=== PATIENT | male | born 1965 | race Caucasian/White ===

== ENCOUNTER 2016-07-03 22:57 | Emergency (ER) | payer OTHER ==
[~2016-07-03] VITALS: Ht 177.8 cm; Wt 120.2 kg
[~2016-07-03 22:57] MED LIST: AMBIEN PO; ASPI81TA85 PO; ATOR40TA PO; CLAR10CA3 PO; DEPA500T2 PO; DIVA500T9 PO; GEOD40CA PO; GLYB5TAB5 PO; LISI2.5T PO; LISI5TAB PO; LUNE2TAB PO; METF500T PO; METF850T PO; MINI1CAP PO; OMEP40CA2 PO; PROP20TA PO; REFR1DRO OU; STRA40CA PO; ZOLO50TA PO; [UNRECOGNIZED DRUG - OTHER] PO
[2016-07-03] MEDS ORDERED: VITATAB11 PO (23:26)
[2016-07-03] MEDS ORDERED: CYCL10TA PO (23:26)
[2016-07-03] MEDS ORDERED: REME15TA2 PO (23:26)
[2016-07-04 00:02] LABS: BASO % 0.3 % (0.0-1.0); EOS # 0.2 K/mm3 (0.0-0.50); EOS % 2.2 % (0.0-3.0); LARGE UNSTAINED CELL # 0.1 K/mm3 (0.0-0.4); LARGE UNSTAINED CELL % 1.3 % (0.0-4.0); LYMPH # 2.3 K/mm3 (1.5-4.5); LYMPH % 31.1 % (24.0-44.0); MEAN CORPUSCULAR HEMOGLOBIN 29.9 pg (27.0-33.0); MEAN CORPUSCULAR HGB CONC 34.2 g/dl (32.0-36.5); MEAN CORPUSCULAR VOLUME 87.5 fl (80.0-96.0); MONO # 0.4 K/mm3 (0.0-0.8); MONO % 5.2 % (0.0-5.0); NEUTROPHILS # 4.2 K/mm3 (1.8-7.7); NEUTROPHILS % 59.9 % (36.0-66.0); PLATELET COUNT, AUTOMATED 249 k/mm3 (150-450); RED CELL DISTRIBUTION WIDTH 12.3 % (11.5-14.5)
[2016-07-04] MEDS ORDERED: LORazepam 2 MG/ML VIAL (J2060) IV STA (00:13)
[2016-07-04 00:15] LABS: ALBUMIN 3.4 GM/DL (3.2-5.2); ALBUMIN/GLOBULIN RATIO 1.03 (1.00-1.93); ALKALINE PHOSPHATASE 71 U/L (45-117); ALT/SGPT 44 U/L (12-78); ANION GAP 10 MEQ/L (8-16); AST/SGOT 18 U/L (15-37); BILIRUBIN,DIRECT 0.1 MG/DL (0.0-0.2); BILIRUBIN,TOTAL 0.3 MG/DL (0.2-1.0); BLOOD UREA NITROGEN 10 MG/DL (7-18); CALCIUM LEVEL 9.4 MG/DL (8.5-10.1); CARBON DIOXIDE LEVEL 27 MEQ/L (21-32); CHLORIDE LEVEL 104 MEQ/L (98-107); FREE T4 0.96 NG/DL (0.76-1.46); GLOMERULAR FILTRATION RATE > 60.0 (>56); GLUCOSE, FASTING 146 MG/DL (70-105); POTASSIUM SERUM 4.1 MEQ/L (3.5-5.1); SODIUM LEVEL 141 MEQ/L (136-145); TOTAL PROTEIN 6.7 GM/DL (6.4-8.2)
[2016-07-04 00:43] LABS: INR 0.91
--- NOTE | 2016-07-04 01:32 | REP ---
Clinical: Cough . Comparison: 03/19/2015 . Technique: PA and lateral. Findings: The mediastinum and cardiac silhouette are normal. The lung sal are clear and without acute consolidation, effusion, or pneumothorax. The skeletal structures are intact and normal. Impression: 1. No acute cardiopulmonary process. Signed by Kodi West MD 07/04/2016 01:24 A
[2016-07-04] MEDS ORDERED: MORPHINE 4 MG/ML 1ML SYRINGE IV PRN (01:45)
[2016-07-04] MEDS ORDERED: ONDANSETRON 4MG/2ML VIAL (J2405) IV ONE (01:45)
[2016-07-04 05:59] VITALS: BP_DIAS 81
[2016-07-04 07:05] VITALS: BP_SYST 131
--- NOTE | 2016-07-04 08:45 | ECGEPIP ---
Stationary ECG Study [facility] - ED Test Date: 2016-07-03 Pat Name: DANGELO MOSQUEDA Department: Room: - Gender: M Box Repairer: raeann : 1965 Requested By: SANIYA Pereria Order Number: [id number] Reading MD: Val Rich Measurements Intervals [place] Rate: 78 P: 47 NE: 127 QRS: -14 QRSD: 106 T: 114 QT: 352 QTc: 402 Interpretive Statements SINUS RHYTHM INFERIOR MYOCARDIAL INFARCTION, PROBABLY OLD NSTTW ABNORMALITY INCREASED RATE 06/07/13 Electronically Signed On 07-04-2016 8:45:24 EDT by Val Rich
--- NOTE | 2016-07-05 20:06 | ECGEPIP ---
Stationary ECG Study [facility] - ED Test Date: 2016-07-04 Pat Name: DANGELO MOSQUEDA Department: Room: - Gender: M Environmental Services Coordinator: carlos alberto : 1965 Requested By: SANIYA Pereira Order Number: [id number] Reading MD: Val Rich Measurements Intervals [place] Rate: 78 P: 46 ND: 141 QRS: -19 QRSD: 98 T: 97 QT: 360 QTc: 412 Interpretive Statements SINUS RHYTHM INFERIOR MYOCARDIAL INFARCTION, PROBABLY OLD NSTTW ABNORMALITY SIMILAR 07/03/16 Electronically Signed On 07-05-2016 20:06:35 EDT by Val Rich
== END 2016-07-04 07:06 | disposition home or self-care (01) ==
LOC: EDBD 22:57 → M ED 22:59
DX: R07.89 Other chest pain (principal); R94.31 Abnormal electrocardiogram [ECG] [EKG]; R11.0 Nausea; K21.9 Gastro-esophageal reflux disease without esophagitis; R56.9 Unspecified convulsions; Z88.8 Allergy status to other drugs, medicaments and biological substances; Z79.899 Other long term (current) drug therapy; Z79.82 Long term (current) use of aspirin; Z79.84 Long term (current) use of oral hypoglycemic drugs
CPT/HCPCS: 71020; 80048; 80076; 82550; 82553; 83690; 83880; 84439; 84443; 84484; 85025; 85379; 85610; 85730; 93005; 93041; 96374; 96375; 99285; J2060; J2405

== ENCOUNTER 2017-07-27 06:11 | Observation (INO) | payer OTHER ==
[2017-07-27 06:27] LABS: HEMATOCRIT 40.3 % (42.0-52.0); HEMOGLOBIN 13.8 g/dl (13.5-17.5); MEAN CORPUSCULAR HEMOGLOBIN 30.9 pg (27.0-33.0); MEAN CORPUSCULAR HGB CONC 34.2 g/dl (32.0-36.5); MEAN CORPUSCULAR VOLUME 90.2 fl (80.0-96.0); PLATELET COUNT, AUTOMATED 221 10^3/uL (150-450); RED BLOOD COUNT 4.47 10^6/uL (4.30-6.10); RED CELL DISTRIBUTION WIDTH 12.1 % (11.5-14.5); WHITE BLOOD COUNT 6.9 10^3/uL (4.0-10.0)
[2017-07-27 06:28] LABS: BEDSIDE GLUCOSE 204 MG/DL (70-105)
[2017-07-27 06:58] LABS: ACETAMINOPHEN LEVEL < 2.0 UG/ML (10.0-30.0); ALBUMIN 3.4 GM/DL (3.2-5.2); ALBUMIN/GLOBULIN RATIO 0.89 (1.00-1.93); ALKALINE PHOSPHATASE 80 U/L (45-117); ALT/SGPT 46 U/L (12-78); ANION GAP 5 MEQ/L (8-16); AST/SGOT 20 U/L (7-37); BILIRUBIN,DIRECT < 0.1 MG/DL (0.0-0.2); BILIRUBIN,TOTAL 0.2 MG/DL (0.2-1.0); BLOOD UREA NITROGEN 13 MG/DL (7-18); CALCIUM LEVEL 9.2 MG/DL (8.5-10.1); CARBON DIOXIDE LEVEL 30 MEQ/L (21-32); CHLORIDE LEVEL 107 MEQ/L (98-107); CPK CREATINE PHOSPHOKINASE 139 U/L (39-308); ETHYL ALCOHOL (ETHANOL) < 0.003 % (0.000-0.010); GLOMERULAR FILTRATION RATE > 60.0 (>56); GLUCOSE, FASTING 211 MG/DL (70-100); POTASSIUM SERUM 4.2 MEQ/L (3.5-5.1); SALICYLATE LEVEL < 1.7 MG/DL (5.0-30.0); SODIUM LEVEL 142 MEQ/L (136-145); TOTAL PROTEIN 7.2 GM/DL (6.4-8.2)
[2017-07-27 07:15] LABS: VALPROIC ACID (DEPAKOTE) 43.8 UG/ML (50.0-100.0)
[2017-07-27 07:39] LABS: LACTIC ACID SEPSIS PROTOCOL 2.7 MMOL/L (0.4-2.0)
[2017-07-27 07:44] LABS: AMMONIA 32 uMOL/L (<32)
[2017-07-27] MEDS: NS 1,000 ML IV ×3 (07:45→19:39)
[2017-07-27 09:01] LABS: ABG HCO3 25.2 MEQ/L (22.0-26.0); ABG O2 SATURATION 95.2 % (95.0-99.0); ABG PARTIAL PRESSURE O2 77.9 mmHg (75.0-100.0); ABG STANDARD HCO3 24.4 MEQ/L (22.0-26.0); ABG TOTAL CO2 26.5 MEQ/L (22.0-29.0); ABG pH (ARTERIAL) 7.385 UNITS (7.350-7.450)
[2017-07-27 09:15] LABS: BEDSIDE GLUCOSE 192 MG/DL (70-105)
[2017-07-27 09:30] LABS: VALPROIC ACID (DEPAKOTE) 40.4 UG/ML (50.0-100.0)
[2017-07-27] MEDS ORDERED: DEXTROSE 50% 50 ML SYRINGE IV (09:45)
[2017-07-27] MEDS ORDERED: GLUCAGON FOR INJ 1 MG VIAL (J1610) SC (09:45)
[2017-07-27] MEDS ORDERED: GLUCOSE 4 GM CHEW TABLET PO (09:45)
[2017-07-27 10:10] LABS: LACTIC ACID SEPSIS PROTOCOL 2.7 MMOL/L (0.4-2.0)
[2017-07-27 11:20] LABS: BEDSIDE GLUCOSE 183 MG/DL (70-105)
[2017-07-27 11:35] LABS: CK-MB VALUE MASS 1.7 NG/ML (<3.6); CPK CREATINE PHOSPHOKINASE 103 U/L (39-308); MB/CK RELATIVE INDEX 1.65 (< OR =4); TROPONIN I 0.02 NG/ML (< 0.10)
[2017-07-27 11:36] LABS: FREE T4 0.98 NG/DL (0.76-1.46)
[2017-07-27 12:45] LABS: LACTIC ACID SEPSIS PROTOCOL 2.8 MMOL/L (0.4-2.0)
[2017-07-27 13:16] LABS: BEDSIDE GLUCOSE 163 MG/DL (70-105)
[2017-07-27] MEDS: HEPARIN SOD (PORCINE) 5000 UNITS/ML VIAL SC ×2 (14:54→22:32)
[2017-07-27 15:19] LABS: BEDSIDE GLUCOSE 146 MG/DL (70-105)
[2017-07-27 17:54] LABS: BEDSIDE GLUCOSE 143 MG/DL (70-105)
[2017-07-27] MEDS: HumaLOG INSULIN (NovoLOG) PER UNIT SC ×2 (18:14→21:00)
[2017-07-27 18:21] LABS: ANION GAP 7 MEQ/L (8-16); BLOOD UREA NITROGEN 10 MG/DL (7-18); CALCIUM LEVEL 8.8 MG/DL (8.5-10.1); CARBON DIOXIDE LEVEL 28 MEQ/L (21-32); CHLORIDE LEVEL 108 MEQ/L (98-107); GLOMERULAR FILTRATION RATE > 60.0 (>56); GLUCOSE, FASTING 146 MG/DL (70-100); POTASSIUM SERUM 4.2 MEQ/L (3.5-5.1); SODIUM LEVEL 143 MEQ/L (136-145)
[2017-07-27 20:29] LABS: CK-MB VALUE MASS 1.8 NG/ML (<3.6); CPK CREATINE PHOSPHOKINASE 86 U/L (39-308); MB/CK RELATIVE INDEX 2.09 (< OR =4); TROPONIN I 0.02 NG/ML (< 0.10)
[2017-07-27] MEDS: DIVALPROEX 500MG *ER* TAB PO (22:29)
[2017-07-27] MEDS: PROPRANOLOL 10 MG TAB PO (22:31)
[2017-07-27] MEDS: ATORVASTATIN 20 MG TAB PO (22:31)
[2017-07-27] MEDS: PRAZOSIN 1 MG CAP PO (22:31)
[2017-07-27 22:45] LABS: BEDSIDE GLUCOSE 187 MG/DL (70-105)
[2017-07-28 05:21] LABS: HEMOGLOBIN 12.2 g/dl (13.5-17.5); MEAN CORPUSCULAR HEMOGLOBIN 30.2 pg (27.0-33.0); MEAN CORPUSCULAR HGB CONC 33.9 g/dl (32.0-36.5); MEAN CORPUSCULAR VOLUME 89.1 fl (80.0-96.0); PLATELET COUNT, AUTOMATED 200 10^3/uL (150-450); RED BLOOD COUNT 4.04 10^6/uL (4.30-6.10); WHITE BLOOD COUNT 5.4 10^3/uL (4.0-10.0)
[2017-07-28 05:35] LABS: ANION GAP 7 MEQ/L (8-16); BLOOD UREA NITROGEN 9 MG/DL (7-18); CALCIUM LEVEL 8.6 MG/DL (8.5-10.1); CARBON DIOXIDE LEVEL 25 MEQ/L (21-32); CHLORIDE LEVEL 110 MEQ/L (98-107); CREATININE FOR GFR 0.75 MG/DL (0.70-1.30); GLOMERULAR FILTRATION RATE > 60.0 (>56); GLUCOSE, FASTING 202 MG/DL (70-100); MAGNESIUM LEVEL 1.4 MG/DL (1.8-2.4); SODIUM LEVEL 142 MEQ/L (136-145)
[2017-07-28] MEDS: NS 1,000 ML IV (05:46)
[2017-07-28] MEDS: HEPARIN SOD (PORCINE) 5000 UNITS/ML VIAL SC ×2 (05:46→14:00)
[2017-07-28] MEDS: MAG SULF 1GM/100ML (MAG RUN) 1 GM in APPROPRIATE DILUENT 1 EA IV (06:40)
[2017-07-28] MEDS: CYCLOBENZAPRINE 10 MG TAB PO (07:01)
[2017-07-28] MEDS: VITAMIN B COMPLEX/VIT C CAP PO (08:45)
[2017-07-28] MEDS: HumaLOG INSULIN (NovoLOG) PER UNIT SC ×2 (08:45→11:21)
[2017-07-28] MEDS: LISINOPRIL 5 MG TAB PO (08:46)
[2017-07-28] MEDS: DIVALPROEX 500MG *ER* TAB PO (08:46)
[2017-07-28] MEDS: OMEPRAZOLE 20 MG CAP PO (08:47)
[2017-07-28] MEDS: MAGNESIUM OXIDE 400 MG TAB (MAG-OX) PO (08:47)
[2017-07-28] MEDS: PROPRANOLOL 10 MG TAB PO (08:47)
[2017-07-28] MEDS: MULTIVITAMINS/MINERALS THERAP 1 TAB PO (08:47)
[2017-07-28] MEDS: ASPIRIN 81 MG ENTERIC TAB PO (08:47)
[2017-07-28] MEDS: ACETAMINOPHEN TAB 650MG DOSE (2X325MG) PO (11:16)
[2017-07-28 11:52] LABS: BEDSIDE GLUCOSE 196 MG/DL (70-105)
== END 2017-07-28 15:59 | disposition home health service (06) ==
LOC: M PCU 07-28 03:36 → M ED 06:11 → M ED INP 09:32 → M ICU 10:35
PROVIDERS: Internal Medicine
DX: R53.83 Other fatigue (principal); R07.89 Other chest pain; F31.9 Bipolar disorder, unspecified; F43.10 Post-traumatic stress disorder, unspecified; F90.9 Attention-deficit hyperactivity disorder, unspecified type; E78.00 Pure hypercholesterolemia, unspecified; I10 Essential (primary) hypertension; K21.9 Gastro-esophageal reflux disease without esophagitis; Z79.82 Long term (current) use of aspirin; Z79.899 Other long term (current) drug therapy; E11.9 Type 2 diabetes mellitus without complications; R56.9 Unspecified convulsions
CPT/HCPCS: J3475

== ENCOUNTER 2018-07-25 10:00 | Emergency (ER) | payer OTHER ==
[~2018-07-25] VITALS: Ht 177.8 cm; Wt 118.2 kg
[~2018-07-25 10:00] MED LIST changes: +AMBI10TA PO; +ATOM40CA PO; +CYCL10TA PO; +MAG400TA PO; +MIRT15TA3 PO; +PRAZ2CAP PO; +REME15TA2 PO; +VITATAB11 PO; +VITMTA PO
[2018-07-25] MEDS ORDERED: ONDANSETRON 4 MG ORAL DISINTEGRATING TAB (Q0162 PER 1MG) PO ONE (10:45)
[2018-07-25] MEDS ORDERED: ACETAMINOPHEN TAB 650MG DOSE (2X325MG) PO ONE (10:45)
[2018-07-25 10:46] LABS: BASO % 0.5 % (0.0-1.0); EOS % 0.5 % (0.0-3.0); HEMATOCRIT 41.4 % (42.0-52.0); LYMPH # 1.1 10^3/uL (1.5-4.5); LYMPH % 18.5 % (24.0-44.0); MEAN CORPUSCULAR HGB CONC 33.8 g/dl (32.0-36.5); MEAN CORPUSCULAR VOLUME 91.6 fl (80.0-96.0); MONO # 0.6 10^3/uL (0.0-0.8); MONO % 10.1 % (0.0-5.0); NEUTROPHILS # 4.1 10^3/uL (1.8-7.7); NEUTROPHILS % 70.2 % (36.0-66.0); PLATELET COUNT, AUTOMATED 190 10^3/uL (150-450); RED BLOOD COUNT 4.52 10^6/uL (4.30-6.10); WHITE BLOOD COUNT 5.8 10^3/uL (4.0-10.0)
[2018-07-25 10:59] LABS: BLOOD UREA NITROGEN 12 MG/DL (7-18); CALCIUM LEVEL 9.6 MG/DL (8.5-10.1); CARBON DIOXIDE LEVEL 24 MEQ/L (21-32); CHLORIDE LEVEL 105 MEQ/L (98-107); CREATININE FOR GFR 0.87 MG/DL (0.70-1.30); GLOMERULAR FILTRATION RATE > 60.0 (>56); GLUCOSE, FASTING 185 MG/DL (70-100); POTASSIUM SERUM 4.2 MEQ/L (3.5-5.1); SODIUM LEVEL 138 MEQ/L (136-145); VALPROIC ACID (DEPAKOTE) 76.1 UG/ML (50.0-100.0)
[2018-07-25 11:29] LABS: INFLUENZA A AMPLIFICATION NEGATIVE (NEGATIVE); INFLUENZA B AMPLIFICATION NEGATIVE (NEGATIVE)
[2018-07-25 13:15] VITALS: BP 140/81
== END 2018-07-25 13:21 | disposition home or self-care (01) ==
LOC: M ED 10:00
DX: B34.9 Viral infection, unspecified (principal); M79.10 Myalgia, unspecified site; R11.0 Nausea; R51 Headache; T50.Z95A Adverse effect of other vaccines and biological substances, initial encounter; E11.9 Type 2 diabetes mellitus without complications; I10 Essential (primary) hypertension; E78.5 Hyperlipidemia, unspecified; R56.9 Unspecified convulsions; F31.9 Bipolar disorder, unspecified; F43.10 Post-traumatic stress disorder, unspecified; Z88.8 Allergy status to other drugs, medicaments and biological substances; Z79.899 Other long term (current) drug therapy; Z79.82 Long term (current) use of aspirin; Z79.84 Long term (current) use of oral hypoglycemic drugs
CPT/HCPCS: 36415; 80048; 80164; 85025; 87502; 99284; Q0162

== ENCOUNTER 2018-11-25 15:03 | Inpatient (IN) | payer OTHER ==
[~2018-11-25] VITALS: Ht 177.8 cm; Wt 116.5 kg
[2018-11-25 17:23] LABS: MEAN CORPUSCULAR HEMOGLOBIN 30.6 pg (27.0-33.0); MEAN CORPUSCULAR HGB CONC 34.1 g/dl (32.0-36.5); MEAN CORPUSCULAR VOLUME 89.5 fl (80.0-96.0); PLATELET COUNT, AUTOMATED 225 10^3/uL (150-450); RED BLOOD COUNT 4.58 10^6/uL (4.30-6.10); WHITE BLOOD COUNT 5.4 10^3/uL (4.0-10.0)
[2018-11-25] MEDS ORDERED: ALOG6.25 PO (17:44)
[2018-11-25] MEDS ORDERED: ATOM80CA PO (17:44)
[2018-11-25 17:54] LABS: AMPHETAMINES LEVEL URINE NEGATIVE (NEGATIVE); BARBITURATES URINE NEGATIVE (NEGATIVE); BENZODIAZEPINES URINE NEGATIVE (NEGATIVE); CANNABINOIDS URINE NEGATIVE (NEGATIVE); COCAINE METABOLITE URINE NEGATIVE (NEGATIVE); METHADONE URINE NEGATIVE (NEGATIVE); OPIATES URINE NEGATIVE (NEGATIVE); PHENCYCLIDINE URINE NEGATIVE (NEGATIVE)
[2018-11-25 18:05] LABS: ACETAMINOPHEN LEVEL < 2.0 UG/ML (10.0-30.0); ALBUMIN 3.7 GM/DL (3.2-5.2); ALT/SGPT 30 U/L (12-78); BILIRUBIN,DIRECT < 0.1 MG/DL (0.0-0.2); BILIRUBIN,TOTAL 0.3 MG/DL (0.2-1.0); BLOOD UREA NITROGEN 15 MG/DL (7-18); CALCIUM LEVEL 9.9 MG/DL (8.5-10.1); CARBON DIOXIDE LEVEL 25 MEQ/L (21-32); CHLORIDE LEVEL 104 MEQ/L (98-107); CREATININE FOR GFR 0.83 MG/DL (0.70-1.30); ETHYL ALCOHOL (ETHANOL) < 0.003 % (0.000-0.010); GLOMERULAR FILTRATION RATE > 60.0 (>56); GLUCOSE, FASTING 228 MG/DL (70-100); POTASSIUM SERUM 4.5 MEQ/L (3.5-5.1); SALICYLATE LEVEL < 1.7 MG/DL (5.0-30.0); SODIUM LEVEL 137 MEQ/L (136-145); TOTAL PROTEIN 6.8 GM/DL (6.4-8.2); VALPROIC ACID (DEPAKOTE) 56.3 UG/ML (50.0-100.0)
[2018-11-25] MEDS ORDERED: METF10004 PO (20:16)
[2018-11-25] MEDS ORDERED: ZOLP10TA2 PO (20:16)
[2018-11-25] MEDS ORDERED: B COTAB3 PO (20:16)
[2018-11-25] MEDS ORDERED: ATOM40CA2 PO (20:16)
[2018-11-25] MEDS ORDERED: OMEP-221 PO (20:16)
[2018-11-25] MEDS ORDERED: LORA-674 PO (20:16)
[2018-11-25] MEDS ORDERED: DIVA500T9 PO (20:16)
[2018-11-25] MEDS ORDERED: GLYB5TA PO (20:16)
[2018-11-25] MEDS ORDERED: PROP10TA56 PO (20:16)
[2018-11-25] MEDS ORDERED: ATOR80TA59 PO (20:16)
[2018-11-25] MEDS ORDERED: LISI40TA PO (20:16)
[2018-11-25] MEDS ORDERED: CYCL10TA PO (20:16)
[2018-11-25] MEDS ORDERED: REME15TA PO (20:16)
[2018-11-25] MEDS ORDERED: D-10TAB3 PO (20:16)
[2018-11-25] MEDS ORDERED: ALOG25TA PO (20:16)
[2018-11-25] MEDS ORDERED: PRAZ2CAP PO (20:16)
[2018-11-25] MEDS ORDERED: ASPI81CH44 PO (20:16)
[2018-11-25] MEDS ORDERED: IBUPROFEN 400 MG TAB PO PRN (20:45)
[2018-11-25] MEDS ORDERED: CYCLOBENZAPRINE 10 MG TAB PO PRN (20:45)
[2018-11-25] MEDS ORDERED: traZODone 50 MG TAB PO PRN (20:45)
[2018-11-25] MEDS ORDERED: MOM 30ML SUSPENSION UDC PO PRN (20:45)
[2018-11-25] MEDS ORDERED: ACETAMINOPHEN TAB 650MG DOSE (2X325MG) PO PRN (20:45)
[2018-11-25] MEDS ORDERED: MIRTAZAPINE 15 MG TAB PO SCH (21:00)
[2018-11-25] MEDS: PRAZOSIN 1 MG CAP PO SCH (21:53)
[2018-11-25] MEDS: metFORMIN (GLUCOPHAGE) 1000 MG TABLET PO SCH (21:53)
[2018-11-25] MEDS: DIVALPROEX 500MG *ER* TAB PO SCH (21:54)
[2018-11-25 22:53] VITALS: BP 158/77
[2018-11-26 06:34] VITALS: BP 118/66
[2018-11-26] MEDS: glyBURIDE 2.5 MG TAB PO SCH ×2 (09:44→17:50)
[2018-11-26] MEDS: DIVALPROEX 500MG *ER* TAB PO SCH ×2 (09:44→20:51)
[2018-11-26] MEDS: VITAMIN D 1,000 INTERNATIONAL UNITS TABLET PO SCH (09:44)
[2018-11-26] MEDS: LORATADINE 10 MG TAB PO SCH (09:44)
[2018-11-26] MEDS: ATOMOXETINE HCL 40 MG CAP (STRATTERA) PO SCH (09:44)
[2018-11-26] MEDS: metFORMIN (GLUCOPHAGE) 1000 MG TABLET PO SCH ×2 (09:44→20:51)
[2018-11-26] MEDS: VITAMIN B COMPLEX/VIT C CAP PO SCH (09:44)
[2018-11-26] MEDS: OMEPRAZOLE 20 MG CAP PO SCH (09:45)
[2018-11-26] MEDS: LISINOPRIL 40 MG TAB PO SCH (09:45)
[2018-11-26] MEDS: PROPRANOLOL 10 MG TAB PO SCH (09:45)
[2018-11-26] MEDS: ATORVASTATIN 20 MG TAB PO SCH (09:45)
[2018-11-26 18:00] VITALS: BP 130/80
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
[2018-11-26] MEDS: PRAZOSIN 1 MG CAP PO SCH (20:51)
[2018-11-26] MEDS ORDERED: MIRTAZAPINE 15 MG TAB PO SCH (21:00)
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
[2018-11-27 06:43] VITALS: BP 147/70
[2018-11-27] MEDS: glyBURIDE 2.5 MG TAB PO SCH (06:50)
[2018-11-27] MEDS: metFORMIN (GLUCOPHAGE) 1000 MG TABLET PO SCH (10:05)
[2018-11-27] MEDS: LORATADINE 10 MG TAB PO SCH (10:05)
[2018-11-27] MEDS: VITAMIN B COMPLEX/VIT C CAP PO SCH (10:05)
[2018-11-27] MEDS: VITAMIN D 1,000 INTERNATIONAL UNITS TABLET PO SCH (10:05)
[2018-11-27] MEDS: LISINOPRIL 40 MG TAB PO SCH (10:06)
[2018-11-27] MEDS: ATORVASTATIN 20 MG TAB PO SCH (10:06)
[2018-11-27] MEDS: DIVALPROEX 500MG *ER* TAB PO SCH (10:06)
[2018-11-27] MEDS: OMEPRAZOLE 20 MG CAP PO SCH (10:06)
[2018-11-27] MEDS: ATOMOXETINE HCL 40 MG CAP (STRATTERA) PO SCH (10:06)
[2018-11-27 10:07] VITALS: BP 121/82
[2018-11-27] MEDS: PROPRANOLOL 10 MG TAB PO SCH (10:07)
--- NOTE | 2018-11-30 12:27 | MHDS ---
DATE OF ADMISSION: 11/25/2018 DATE OF DISCHARGE: 11/27/2018 DIAGNOSES: Major depressive disorder. Post traumatic stress disorder. Attention deficit hyperactivity disorder. Seizure disorder. Diabetes mellitus. IDENTIFYING DATA: He is a 53-year-old male who lives with his who is wheel chair bound, father of two children, supported by social security disability, who was admitted because of suicidal thoughts. For details of history of present illness (HPI), past psychiatric history, medical history, social history, drug and alcohol history, please refer to the initial evaluation. COURSE IN THE HOSPITAL: The patient was initially depressed and sad. He was ambivalent about suicidal thoughts and plan and could not identify the stress. His Remeron was increased to 30 mg once daily. He was continued in his individual, group and milieu therapy. His self esteem improved and he started attending groups and activities. Psychoeducation regarding the benefits and the side effects of the medications were explained to the patient. He slept better. His mood improved. No side effects from the medications. Denied suicidal or homicidal ideas. He was discharged. LABS: CBC within normal limits. CMP within normal limits. Urine toxicology was negative. MEDICATIONS: - mirtazapine 30 mg once daily - Strattera 40 mg once daily - Depakote 1000 mg twice a day for seizure disorder - prazosin 6 mg at night for post traumatic stress disorder - propranolol 10 mg daily for anxiety VITAL SIGNS: Temperature 98.2, respiratory rate 14, blood pressure 147/70. REVIEW OF SYSTEMS: Denied chest pain, palpitations. Denied abdominal pain, dysuria. Denied shortness of breath or cough. Denied dizziness, numbness, tingling. Gait is normal. PLAN: To discharge him home. Followup at [facility]. MENTAL STATUS EXAMINATION: He is casually dressed, cooperative, made good eye contact. Psychomotor activity is normal. Mood is euthymic. Affect is appropriate. Denied auditory or visual hallucinations. Denied suicidal or homicidal ideas. His insight and judgment are good. Memory - immediate, remote and recent are good. He is oriented to time, place and person. Denied any delusions. Denied any paranoia.
== END 2018-11-27 12:50 | disposition home or self-care (01) | DRG 881 ==
LOC: M ED 15:03 → M ED INP 20:32 → M PSY 22:47
PROVIDERS: ADMIT Psychiatry & Neurology Psychiatry; ATTEND Psychiatry & Neurology Psychiatry
DX: F32.9 Major depressive disorder, single episode, unspecified (principal); F43.10 Post-traumatic stress disorder, unspecified; F90.9 Attention-deficit hyperactivity disorder, unspecified type; G40.909 Epilepsy, unspecified, not intractable, without status epilepticus; E11.9 Type 2 diabetes mellitus without complications; I10 Essential (primary) hypertension; Z88.0 Allergy status to penicillin; Z88.8 Allergy status to other drugs, medicaments and biological substances; K21.9 Gastro-esophageal reflux disease without esophagitis; E78.5 Hyperlipidemia, unspecified; Z79.899 Other long term (current) drug therapy

== ENCOUNTER 2019-05-24 09:13 | Observation (INO) | payer OTHER ==
[~2019-05-24] VITALS: Ht 177.8 cm; Wt 109.8 kg
[~2019-05-24 09:13] MED LIST changes: +ALOG25TA PO; +ALOG6.25 PO; +ASPI1CHW3 PO; +ATOM40CA2 PO; +ATOM80CA PO; +ATOR80TA59 PO; +B COTAB3 PO; +D-10TAB3 PO; +GLYB5TA PO; +LISI40TA PO; +LORA-674 PO; +METF10004 PO; +OMEP-221 PO; +PROP10TA56 PO; +REME15TA PO; +ZOLP10TA2 PO
[2019-05-24 09:41] LABS: BASO % 0.5 % (0.0-1.0); EOS # 0.1 10^3/uL (0.0-0.5); EOS % 2.3 % (0.0-3.0); HEMATOCRIT 43.9 % (42.0-52.0); HEMOGLOBIN 14.5 g/dl (13.5-17.5); LYMPH # 2.4 10^3/uL (1.5-5.0); LYMPH % 39.4 % (24.0-44.0); MEAN CORPUSCULAR HEMOGLOBIN 30.7 pg (27.0-33.0); MEAN CORPUSCULAR VOLUME 92.8 fl (80.0-96.0); MONO # 0.5 10^3/uL (0.0-0.8); MONO % 8.5 % (0.0-5.0); PLATELET COUNT, AUTOMATED 226 10^3/uL (150-450); RED BLOOD COUNT 4.73 10^6/uL (4.30-6.10); WHITE BLOOD COUNT 6.2 10^3/uL (4.0-10.0)
[2019-05-24 10:17] LABS: BLOOD UREA NITROGEN 13 MG/DL (7-18); CALCIUM LEVEL 9.3 MG/DL (8.5-10.1); CARBON DIOXIDE LEVEL 22 MEQ/L (21-32); CHLORIDE LEVEL 109 MEQ/L (98-107); CK-MB VALUE MASS < 1.0 NG/ML (<3.6); CPK CREATINE PHOSPHOKINASE 67 U/L (39-308); CREATININE FOR GFR 0.96 MG/DL (0.70-1.30); GLOMERULAR FILTRATION RATE > 60.0 (>56); GLUCOSE, FASTING 186 MG/DL (70-100); MB/CK RELATIVE INDEX 1.49 (< OR =4); POTASSIUM SERUM 4.3 MEQ/L (3.5-5.1); SODIUM LEVEL 140 MEQ/L (136-145); TROPONIN I < 0.02 NG/ML (< 0.10)
[2019-05-24] MEDS ORDERED: JARD1TAB3 PO (10:39)
[2019-05-24 11:46] LABS: VALPROIC ACID (DEPAKOTE) 35.1 UG/ML (50.0-100.0)
[2019-05-24 11:58] LABS: HEMOGLOBIN A1c 7.1 %
--- NOTE | 2019-05-24 13:34 | REP ---
Portable chest x-ray: Single view. History: Syncope. Comparison chest x-ray: July 27, 2017. Findings: Monitoring electrodes are seen. The lungs are symmetrically aerated and clear. Pleural angles are sharp. Heart is not enlarged. Pulmonary vasculature is not increased. No significant bony abnormality. Impression: Negative portable chest x-ray. Electronically Signed by Scar Ruiz MD 05/24/2019 01:25 P
[2019-05-24] MEDS ORDERED: GLUCAGON FOR INJ 1 MG VIAL (J1610) SC PRN (13:45)
[2019-05-24] MEDS ORDERED: DEXTROSE 50% 50 ML SYRINGE IV PRN (13:45)
[2019-05-24] MEDS ORDERED: GLUCOSE 4 GM CHEW TABLET PO PRN (13:45)
--- NOTE | 2019-05-24 13:48 | REP ---
CT of the brain without IV contrast: Comparison is 07/27/2017. There is no subdural or epidural hematoma. There is no intraparenchymal or subarachnoid hemorrhage. There is no edema, mass effect or midline shift. The cortical stripe is unremarkable. The visualized paranasal sinuses and mastoid air cells are unremarkable. Impression: Essentially negative CT study of the brain. No significant interval change except that the mucosal thickening of the ethmoid sinuses that was identified previously has resolved. Electronically Signed by Stephan Guevara MD 05/24/2019 01:39 P
[2019-05-24] MEDS ORDERED: VITATAB73 PO (14:21)
[2019-05-24] MEDS ORDERED: VITAD1000T PO (14:21)
[2019-05-24] MEDS ORDERED: GLIP5TAB8 PO (14:21)
[2019-05-24] MEDS ORDERED: PRAZ5CAP22 PO (14:21)
[2019-05-24] MEDS ORDERED: TRUL10IN SC (14:21)
[2019-05-24] MEDS ORDERED: CYCLOBENZAPRINE 10 MG TAB PO PRN (15:00)
--- NOTE | 2019-05-24 15:01 | HPEPDOC ---
[facility] Medical History & Physical Date of Admission May 24, 2019 Date of Service: May 24, 2019 Attending Physician: DIANA SALAZAR MD History and Physical CHIEF COMPLAINT: syncope HISTORY OF PRESENT ILLNESS: 53 y.o male w/ PMH of Bipolar depression, HTN, DM, PTSD & HLD presents from home with a syncopal episode. Patient reports dizziness with episodes of low BP for the past several weeks along with pre-syncopal events but this is his first episode of syncope. Patient reports waking up in the morning and passing out for <1 minute after he stood up. He denies any pre- syncopal symptoms, heard him falling and reports that he regained consciousness shortly thereafter and he was confused for a few minutes. He has not had any symptoms since, currently resting comfortably in bed. He reports g ood oral intake, does not drink any water because it tastes like ipecac to him. He drinks flavored water, reports drinking liters everyday. He reports polyuria, supposedly more than his oral intake for the day. He has a significant psychiatric history, was admitted to [facility] in November of 2018. He has a history of seizure/pseudoseizure, takes Depakote but levels are low upon checking today. He has slightly elevated lactate, otherwise no abnormalities noted. 10 point review of system is negative except for above. PAST MEDICAL HISTORY: 1. Bipolar depression 2. PTSD 3. DM 4. HTN 5. HLD PAST SURGICAL HISTORY: 1. "multiple minor procedures" SOCIAL HISTORY: Denies smoking denies alcohol use denies drug use FAMILY HISTORY: Mother had heart disease ALLERGIES: Please see below. HOME MEDICATIONS: Please see below. PHYSICAL EXAMINATION: VITAL SIGNS: See below GENERAL APPEARANCE: No distress HEENT: Moist mucus membranes CARDIOVASCULAR: S1, S2, no murmurs LUNGS: clear to auscultation ABDOMEN: soft, non-tender, non-distended, +BS EXTREMITIES: ROM intact NEUROLOGICAL: No focal deficits PSYCHIATRIC: calm LABORATORY DATA: See below. IMAGING: CT head read pending, CXR without acute pathology MICROBIOLOGY: Please see below. ASSESSMENT: 53 y.o male w/ multiple medical comorbidities presents with a syncopal episode. PLAN: 1. Syncope - unknown if true syncope given presentation, check orthostatics, elevated lactate, ?related to Jardiance, continue IV hydration, will monitor for now, no need for extensive work up at this time, CT head pending. 2. DM - hold home meds, sliding scale insulin w/ fingersticks qAC & HS 3. HTN - continue Lisinopril & propranolol 4. HLD - continue statin 5. Bipolar/PTSD - continue Depakote DVT Prophylaxis - SCDs GI Prophylaxis - PPI Vital Signs Vital Signs Date Time Temp Pulse Resp B/P (MAP) Pulse Ox O2 Delivery O2 Flow Rate FiO2 05/24/19 10:59 98.3 05/24/19 09:38 86 17 113/65 (81) 92 Room Air Laboratory Data Labs 24H Laboratory Tests 2 05/24/19 09:28: Immature Granulocyte % (Auto) 0.3, Neutrophils (%) (Auto) 49.0, Lymphocytes (%) (Auto) 39.4, Monocytes (%) (Auto) 8.5H, Eosinophils (%) (Auto) 2.3, Basophils (%) (Auto) 0.5, Neutrophils # (Auto) 3.0, Lymphocytes # (Auto) 2.4, Monocytes # (Auto) 0.5, Eosinophils # (Auto) 0.1, Basophils # (Auto) 0.0, Nucleated Red Blood Cells % (auto) 0.0, Anion Gap 9, Glomerular Filtration Rate > 60.0, Estimated Mean Plasma Glucose 157H, Hemoglobin A1c 7.1, Lactic Acid Level 3.8*H, Calcium Level 9.3, Total Creatine Kinase 67, Creatine Kinase MB < 1.0, Creatine Kinase MB Relative Index 1.49, Troponin I < 0.02, Thyroid Stimulating Hormone (TSH) 2.010, Valproic Acid (Depakene) Level 35.1L CBC/BMP Laboratory Tests 05/24/19 09:28 Home Medications Scheduled Aspirin (Aspirin) 81 Mg Tab.chew, 81 MG PO DAILY Atomoxetine HCl (Atomoxetine HCl) 40 Mg Capsule, 40 MG PO DAILY Atorvastatin Calcium (Atorvastatin Calcium) 80 Mg Tablet, 40 MG PO DAILY Cholecalciferol (Vitamin D3) (Vitamin D3) 1,000 Unit Tablet, 1,000 UNITS PO DAILY Divalproex Sodium (Divalproex Sodium ER) 500 Mg Tab.er.24h, 2,000 MG PO QPM dinner Dulaglutide (Trulicity) 0.75 Mg/0.5 Ml Pen.injctr, 0.75 MG SC QWEEK friday Empagliflozin (Jardiance) 25 Mg Tablet, 25 MG PO DAILY Glipizide (Glipizide) 5 Mg Tablet, 10 MG PO BID Lisinopril (Lisinopril) 40 Mg Tablet, 40 MG PO DAILY Loratadine (Loratadine) 10 Mg Tablet, 10 MG PO DAILY Metformin HCl (Metformin HCl) 1,000 Mg Tablet, 1,000 MG PO BID Mirtazapine (Remeron) 15 Mg Tablet, 15 MG PO QHS Omeprazole (Omeprazole) 40 Mg Capsule.dr, 40 MG PO DAILY Prazosin HCl (Prazosin HCl) 5 Mg Capsule, 5 MG PO QHS Propranolol HCl (Propranolol HCl) 10 Mg Tablet, 10 MG PO BID Vitamin B Complex (Vitamin B Complex) 1 Each Tablet, 1 TAB PO DAILY Scheduled PRN Cyclobenzaprine HCl (Cyclobenzaprine HCl) 10 Mg Tablet, 10 MG PO TID PRN for MUSCLE SPASMS Zolpidem Tartrate (Zolpidem Tartrate) 10 Mg Tablet, 10 MG PO QHS PRN for SLEEP Allergies Coded Allergies: Penicillins (Verified Allergy, Intermediate, RASH, 11/25/18) PREVIOUS ALLERGY HAD PCN "MOLD" hydrochlorothiazide (Verified Adverse Reaction, Mild, dizziness, 05/24/19) A-FIB/CHADSVASC A-FIB History Current/History of A-Fib/PAF?: No DIANA SALAZAR MD May 24, 2019 15:01
[2019-05-24 15:15] VITALS: BP 126/89
[2019-05-24 15:30] VITALS: BP_SYST 126; BP_SYST 127; BP_SYST 132; BP_DIAS 78; BP_DIAS 79; BP_DIAS 80
[2019-05-24] MEDS: PANTOPRAZOLE 40MG TAB (PROTONIX) PO SCH (15:34)
[2019-05-24] MEDS: LORATADINE 10 MG TAB PO SCH (15:34)
[2019-05-24] MEDS: ATORVASTATIN 20 MG TAB PO SCH (15:34)
[2019-05-24] MEDS: VITAMIN D 1,000 INTERNATIONAL UNITS TABLET PO SCH (15:34)
[2019-05-24] MEDS: ASPIRIN 81 MG CHEW TABLET PO SCH (15:34)
[2019-05-24] MEDS: lisinopriL 40 MG TAB PO SCH (15:34)
[2019-05-24] MEDS: NS 1,000 ML IV SCH (15:35)
[2019-05-24] MEDS: ATOMOXETINE HCL 40 MG CAP (STRATTERA) PO SCH (17:42)
[2019-05-24] MEDS: HumaLOG INSULIN (NovoLOG) PER UNIT SC SCH (17:43)
[2019-05-24] MEDS ORDERED: DIVALPROEX 500MG *ER* TAB PO SCH (18:00)
[2019-05-24] MEDS: PROPRANOLOL 10 MG TAB PO SCH (20:06)
--- NOTE | 2019-05-24 20:37 | ECGEPIP ---
[facility] - ED Test Date: 2019-05-24 Pat Name: DANGELO MOSQUEDA Department: Room: - Gender: Male Mussel Opener: LILIANA : 1965 Requested By: Nahun Dorado Order Number: [id number] Reading MD: Val Rich Measurements Intervals [place] Rate: 86 P: 54 PA: 127 QRS: -14 QRSD: 102 T: 105 QT: 344 QTc: 412 Interpretive Statements SINUS RHYTHM INFERIOR MYOCARDIAL INFARCTION, PROBABLY OLD LAD NSTTW abnormalities SIMILAR 07/27/17 Electronically Signed on 05-24-2019 20:37:12 EDT by Val Rich
[2019-05-24] MEDS ORDERED: MIRTAZAPINE 15 MG TAB PO SCH (21:00)
[2019-05-24] MEDS ORDERED: HumaLOG INSULIN (NovoLOG) PER UNIT SC SCH (21:00)
[2019-05-24 22:00] VITALS: BP 131/78
[2019-05-24 22:50] VITALS: BP_SYST 116; BP_SYST 121; BP_DIAS 76; BP_DIAS 78
[2019-05-25] MEDS: NS 1,000 ML IV SCH (04:14)
[2019-05-25 06:00] VITALS: BP 111/75
[2019-05-25 07:04] LABS: HEMATOCRIT 42.4 % (42.0-52.0); HEMOGLOBIN 14.2 g/dl (13.5-17.5); MEAN CORPUSCULAR HEMOGLOBIN 31.3 pg (27.0-33.0); MEAN CORPUSCULAR HGB CONC 33.5 g/dl (32.0-36.5); MEAN CORPUSCULAR VOLUME 93.4 fl (80.0-96.0); PLATELET COUNT, AUTOMATED 215 10^3/uL (150-450); RED BLOOD COUNT 4.54 10^6/uL (4.30-6.10); WHITE BLOOD COUNT 6.1 10^3/uL (4.0-10.0)
[2019-05-25 07:35] LABS: ALBUMIN 3.1 GM/DL (3.2-5.2); ALT/SGPT 39 U/L (12-78); BILIRUBIN,TOTAL 0.2 MG/DL (0.2-1.0); BLOOD UREA NITROGEN 11 MG/DL (7-18); CALCIUM LEVEL 8.7 MG/DL (8.5-10.1); CARBON DIOXIDE LEVEL 26 MEQ/L (21-32); CHLORIDE LEVEL 112 MEQ/L (98-107); CREATININE FOR GFR 0.82 MG/DL (0.70-1.30); GLOMERULAR FILTRATION RATE > 60.0 (>56); GLUCOSE, FASTING 105 MG/DL (70-100); MAGNESIUM LEVEL 1.7 MG/DL (1.8-2.4); POTASSIUM SERUM 3.8 MEQ/L (3.5-5.1); SODIUM LEVEL 143 MEQ/L (136-145); TOTAL PROTEIN 6.3 GM/DL (6.4-8.2)
[2019-05-25] MEDS: ASPIRIN 81 MG CHEW TABLET PO SCH (08:22)
[2019-05-25] MEDS: ATOMOXETINE HCL 40 MG CAP (STRATTERA) PO SCH (08:22)
[2019-05-25] MEDS: PANTOPRAZOLE 40MG TAB (PROTONIX) PO SCH (08:22)
[2019-05-25] MEDS: VITAMIN D 1,000 INTERNATIONAL UNITS TABLET PO SCH (08:22)
[2019-05-25 08:23] VITALS: BP 111/75
[2019-05-25] MEDS: ATORVASTATIN 20 MG TAB PO SCH (08:23)
[2019-05-25] MEDS: lisinopriL 40 MG TAB PO SCH (08:23)
[2019-05-25] MEDS: LORATADINE 10 MG TAB PO SCH (08:23)
[2019-05-25] MEDS: PROPRANOLOL 10 MG TAB PO SCH (08:23)
[2019-05-25] MEDS: HumaLOG INSULIN (NovoLOG) PER UNIT SC SCH (08:24)
[2019-05-25] MEDS: MAG SULF 1GM/100ML (MAG RUN) 1 GM in IV 1 EA IV SCH ×2 (09:29→10:34)
--- NOTE | 2019-05-27 23:30 | DS.PDOC ---
Discharge Summary General Date of Admission May 24, 2019 at 09:14 Date of Discharge 05/25/19 Attending Physician: DIANA SALAZAR MD Discharge Summary PROCEDURES PERFORMED DURING STAY: None. ADMITTING DIAGNOSES: 1. Syncope. DISCHARGE DIAGNOSES: 1. Syncope. COMPLICATIONS/CHIEF COMPLAINT: Bipolar Depression. HISTORY OF PRESENT ILLNESS: 53-year-old male with past medical history of bipolar depression, was admitted for a syncopal episode. Patient was found to be hypotensive with elevated lactate in the ED, received IV hydration. Repeat orthostatics were negative, lactate level normalized with adequate IV hydration. Patient was monitored overnight with telemetry monitoring, remained his symptomatic throughout hospitalization, seen in the morning, asymptomatic, without any complaints. Unknown if she truly had syncopal episode versus if it was due to his psychiatric history. Patient is currently clinically and hemodynamically stable for discharge and outpatient follow-up, no further need for aggressive workup. HOSPITAL COURSE: As above. DISCHARGE MEDICATIONS: Please see below. ALLERGIES: Please see below. PHYSICAL EXAMINATION: VITAL SIGNS: See below GENERAL APPEARANCE: No distress HEENT: Moist mucus membranes CARDIOVASCULAR: S1, S2, no murmurs LUNGS: clear to auscultation ABDOMEN: soft, non-tender, non-distended, +BS EXTREMITIES: ROM intact NEUROLOGICAL: No focal deficits PSYCHIATRIC: calm LABORATORY DATA: Please see below. PROGNOSIS: Fair ACTIVITY: As tolerated. DIET: Cardiac DISCHARGE PLAN: Follow with PCP in 1-2 weeks DISPOSITION: 01 Home, Self-Care. DISCHARGE INSTRUCTIONS: 1. As above. DISCHARGE CONDITION: Stable. TIME SPENT ON DISCHARGE: Greater than 26 minutes. Vital Signs/I&Os Vital Signs Date Time Temp Pulse Resp B/P (MAP) Pulse Ox O2 Delivery O2 Flow Rate FiO2 05/25/19 08:23 126 111/75 05/25/19 06:00 97.8 15 100 05/24/19 15:15 Room Air Discharge Medications Scheduled Aspirin (Aspirin) 81 Mg Tab.chew, 81 MG PO DAILY, (Reported) Atomoxetine HCl (Atomoxetine HCl) 40 Mg Capsule, 40 MG PO DAILY, (Reported) Atorvastatin Calcium (Atorvastatin Calcium) 80 Mg Tablet, 40 MG PO DAILY, (Reported) Cholecalciferol (Vitamin D3) (Vitamin D3) 1,000 Unit Tablet, 1,000 UNITS PO DAILY, (Reported) Divalproex Sodium (Divalproex Sodium ER) 500 Mg Tab.er.24h, 2,000 MG PO QPM, (R eported) dinner Dulaglutide (Trulicity) 0.75 Mg/0.5 Ml Pen.injctr, 0.75 MG SC QWEEK, (Reported) friday Empagliflozin (Jardiance) 25 Mg Tablet, 25 MG PO DAILY, (Reported) Glipizide (Glipizide) 5 Mg Tablet, 10 MG PO BID, (Reported) Lisinopril (Lisinopril) 40 Mg Tablet, 40 MG PO DAILY, (Reported) Loratadine (Loratadine) 10 Mg Tablet, 10 MG PO DAILY, (Reported) Metformin HCl (Metformin HCl) 1,000 Mg Tablet, 1,000 MG PO BID, (Reported) Mirtazapine (Remeron) 15 Mg Tablet, 15 MG PO QHS, (Reported) Omeprazole (Omeprazole) 40 Mg Capsule.dr, 40 MG PO DAILY, (Reported) Prazosin HCl (Prazosin HCl) 5 Mg Capsule, 5 MG PO QHS, (Reported) Propranolol HCl (Propranolol HCl) 10 Mg Tablet, 10 MG PO BID, (Reported) Vitamin B Complex (Vitamin B Complex) 1 Each Tablet, 1 TAB PO DAILY, (Reported) Scheduled PRN Cyclobenzaprine HCl (Cyclobenzaprine HCl) 10 Mg Tablet, 10 MG PO TID PRN for MUSCLE SPASMS, (Reported) Zolpidem Tartrate (Zolpidem Tartrate) 10 Mg Tablet, 10 MG PO QHS PRN for SLEEP, (Reported) Allergies Coded Allergies: Penicillins (Verified Allergy, Intermediate, RASH, 11/25/18) PREVIOUS ALLERGY HAD PCN "MOLD" hydrochlorothiazide (Verified Adverse Reaction, Mild, dizziness, 05/24/19) DIANA SALAZAR MD May 27, 2019 23:30
== END 2019-05-25 12:20 | disposition home or self-care (01) ==
LOC: M ED 09:13 → M ED INP 09:14 → ENRESERV 14:13 → M MSPAV 15:14
PROVIDERS: ADMIT Internal Medicine; ATTEND Internal Medicine
DX: R55 Syncope and collapse (principal); F31.9 Bipolar disorder, unspecified; F43.10 Post-traumatic stress disorder, unspecified; I95.9 Hypotension, unspecified; E11.9 Type 2 diabetes mellitus without complications; I10 Essential (primary) hypertension; E78.5 Hyperlipidemia, unspecified; Z79.899 Other long term (current) drug therapy; Z79.82 Long term (current) use of aspirin; Z79.84 Long term (current) use of oral hypoglycemic drugs; Z88.0 Allergy status to penicillin
CPT/HCPCS: 36415; 70450; 71045; 80048; 80053; 80164; 82550; 82553; 83036; 83605; 83735; 84145; 84443; 84484; 85025; 85027; 87641; 93005; 93041; 94760; 97116; 97161; 99285; G0378; J3475

== ENCOUNTER → 2019-10-15 | Outpatient (CLI) | payer OTHER ==
[~2019-10-15] MED LIST changes: -ATOM40CA PO; +ATOM40CA16 PO; +CYCL-707 PO; -CYCL10TA PO; +D31000TA2 PO; +GLIP5TAB8 PO; +JARD1TAB3 PO; +PRAZ5CAP22 PO; +TRUL10IN SC; +VITATAB73 PO
--- NOTE | 2019-12-03 14:41 | REP ---
SCROTAL ULTRASOUND: HISTORY: Right scrotal lump. FINDINGS: Real time sonographic evaluation of the scrotum and contents is performed. The testicles are normal in size and echotexture with no mass or torsion. The right testicle measures 4.6 x 2.7 x 2.7 cm and the left testicle measures 4.3 x 2.3 x 2.7 cm. Resistive index of the right testicle is 0.57 and left testicle is 0.50. At the site of the palpable lump, there is a hypoechoic area with multiple echogenic foci having the appearance of partially calcified nodule along the head of the right epididymis. It measures approximately 5 mm in diameter. This may represent a partially calcified appendage of the epididymis. There is a cyst in the head of the right epididymis measuring 4 mm and 2 cysts of the left epididymis measuring 7 and 8 mm maximally. There are small bilateral hydroceles. IMPRESSION: No testicular mass or torsion. Small cysts are seen in the head of each epididymis. Along the head of the right epididymis, there is a partially calcified nodule which may represent a partially calcified appendage of the epididymis. Small bilateral hydroceles. MTDD
== END ==
LOC: M RAD 15:00
PROVIDERS: ATTEND Family Medicine
DX: N43.3 Hydrocele, unspecified (principal); N44.8 Other noninflammatory disorders of the testis

== ENCOUNTER 2021-03-16 10:27 | Emergency (ER) | payer OTHER ==
[~2021-03-16] VITALS: Ht 193 cm; Wt 109.0 kg
[~2021-03-16 10:27] MED LIST changes: -GLYB5TA PO; +GLYB5TAB6 PO; -LISI40TA PO; +LISI40TA4 PO; -MAG400TA PO; +MAGN400T35 PO; +MIRT-62 PO; -REME15TA PO
--- NOTE | 2021-03-16 11:19 | REP ---
INDICATION: trauma COMPARISON: 07/27/2017 TECHNIQUE: Axial noncontrast images from the skull base to the vertex with coronal reformations. This CT examination was performed using the following dose reduction techniques: Automated exposure control, adjustment of mA and/or kv according to the patient's size, and use of iterative reconstruction technique. FINDINGS: The ventricles, sulci, and cisterns are normal in position and appearance. Rojas-white differentiation is maintained. No acute intracranial hemorrhage, mass/mass effect, pathology or trauma/injury. No evidence for acute infarction. No extra-axial fluid collection. Calvarium is intact. Paranasal sinuses and mastoid air cells are clear. IMPRESSION: Normal noncontrast head CT. No evidence for acute intracranial pathology or trauma/injury. <Electronically signed by Kodi West > 03/16/21 [id number]
--- NOTE | 2021-03-16 11:21 | REP ---
INDICATION: Syncope/near-syncope COMPARISON: 07/27/2017 TECHNIQUE: Portable AP view of the chest FINDINGS: The mediastinum and cardiac silhouette are stable and within normal limits for portable technique. The lung sal are clear without acute consolidation, effusion, or pneumothorax. Skeletal structures are intact. IMPRESSION: No acute cardiopulmonary process appreciated. <Electronically signed by Kodi West > 03/16/21 [id number]
[2021-03-16 11:36] LABS: BASO % 0.2 % (0.0-1.0); EOS % 0.1 % (0.0-3.0); HEMATOCRIT 49.7 % (42.0-52.0); HEMOGLOBIN 16.2 g/dl (13.5-17.5); LYMPH # 1.5 10^3/uL (1.5-5.0); LYMPH % 16.2 % (24.0-44.0); MEAN CORPUSCULAR HEMOGLOBIN 30.2 pg (27.0-33.0); MEAN CORPUSCULAR HGB CONC 32.6 g/dl (32.0-36.5); MEAN CORPUSCULAR VOLUME 92.7 fl (80.0-96.0); MONO # 0.6 10^3/uL (0.0-0.8); MONO % 6.2 % (2.0-8.0); NEUTROPHILS # 7.2 10^3/uL (1.5-8.5); NEUTROPHILS % 76.8 % (36.0-66.0); PLATELET COUNT, AUTOMATED 259 10^3/uL (150-450); RED BLOOD COUNT 5.36 10^6/uL (4.30-6.10); WHITE BLOOD COUNT 9.4 10^3/uL (4.0-10.0)
[2021-03-16] MEDS ORDERED: NS 1,000 ML IV ONE (11:40)
[2021-03-16 12:01] LABS: MB/CK RELATIVE INDEX 2.35 (< OR =4)
[2021-03-16 12:18] LABS: BLOOD UREA NITROGEN 18 MG/DL (7-18); CARBON DIOXIDE LEVEL 25 MEQ/L (21-32); CHLORIDE LEVEL 108 MEQ/L (98-107); CREATININE FOR GFR 0.84 MG/DL (0.70-1.30); GLOMERULAR FILTRATION RATE > 60.0 (>56); GLUCOSE, FASTING 216 MG/DL (70-100); POTASSIUM SERUM 4.8 MEQ/L (3.5-5.1); SODIUM LEVEL 141 MEQ/L (136-145); THYROID STIMULATING HORMONE 0.915 uIU/ML (0.358-3.740)
[2021-03-16 13:07] LABS: MB/CK RELATIVE INDEX 2.44 (< OR =4)
[2021-03-16 16:15] VITALS: O2SAT 98
[2021-03-16 17:01] VITALS: BP 129/77
--- NOTE | 2021-03-17 07:48 | ECGEPIP ---
[facility] - ED Test Date: 2021-03-16 Pat Name: DANGELO MOSQUEDA Department: Room: - Gender: Male Assistant Finance Manager: MAURICE : 1965 Requested By: Val Rich Order Number: [id number] Reading MD: Val Rich Measurements Intervals [place] Rate: 81 P: 68 NM: 126 QRS: -21 QRSD: 86 T: 80 QT: 360 QTc: 418 Interpretive Statements Normal sinus rhythm Nonspecific T wave abnormality possible inferior infarct similar 05/24/19 Electronically Signed on 03-17-2021 7:47:52 EST by Val Rich
== END 2021-03-16 17:17 | disposition home or self-care (01) ==
LOC: M ED 10:27
DX: R55 Syncope and collapse (principal); I49.8 Other specified cardiac arrhythmias; S06.0X9A Concussion with loss of consciousness of unspecified duration, initial encounter; W01.190A Fall on same level from slipping, tripping and stumbling with subsequent striking against furniture, initial encounter; Y92.009 Unspecified place in unspecified non-institutional (private) residence as the place of occurrence of the external cause; Y93.89 Activity, other specified; Y99.9 Unspecified external cause status; E11.9 Type 2 diabetes mellitus without complications; I10 Essential (primary) hypertension; J20.9 Acute bronchitis, unspecified; Z79.82 Long term (current) use of aspirin; Z79.84 Long term (current) use of oral hypoglycemic drugs; Z79.899 Other long term (current) drug therapy; Z88.0 Allergy status to penicillin; Z88.8 Allergy status to other drugs, medicaments and biological substances

== ENCOUNTER 2021-04-14 23:20 | Emergency (ER) | payer OTHER ==
[~2021-04-14] VITALS: Ht 177.8 cm; Wt 104.5 kg
[~2021-04-14 23:20] MED LIST changes: -OMEP-221 PO; +OMEP40CA5 PO
[2021-04-14 23:22] VITALS: BP 167/94
== END 2021-04-15 02:02 | disposition home or self-care (01) ==
LOC: M ED 23:20
DX: S00.03XA Contusion of scalp, initial encounter (principal); W01.0XXA Fall on same level from slipping, tripping and stumbling without subsequent striking against object, initial encounter; Y92.9 Unspecified place or not applicable; Y93.9 Activity, unspecified; Y99.0 Civilian activity done for income or pay; I10 Essential (primary) hypertension; E78.5 Hyperlipidemia, unspecified; E11.9 Type 2 diabetes mellitus without complications; Z88.0 Allergy status to penicillin; Z79.899 Other long term (current) drug therapy; Z79.82 Long term (current) use of aspirin

== ENCOUNTER 2021-06-02 23:25 | Emergency (ER) | payer OTHER ==
[~2021-06-02 23:25] MED LIST changes: -D31000TA2 PO; +VITA100093 PO
[2021-06-02] MEDS ORDERED: NITROGLYCERIN 0.4 MG SUBL TABLET As Ordered ONE (23:59)
[2021-06-03] MEDS ORDERED: NITROGLYCERIN 0.4 MG SUBL TABLET SL PRN
[2021-06-03 00:02] VITALS: BP 166/90
[2021-06-03 00:14] LABS: BASO % 0.6 % (0.0-1.0); EOS # 0.2 10^3/uL (0.0-0.5); EOS % 3.3 % (0.0-3.0); HEMATOCRIT 46.1 % (42.0-52.0); HEMOGLOBIN 15.4 g/dl (13.5-17.5); LYMPH # 2.8 10^3/uL (1.5-5.0); LYMPH % 39.7 % (24.0-44.0); MEAN CORPUSCULAR HEMOGLOBIN 30.6 pg (27.0-33.0); MEAN CORPUSCULAR HGB CONC 33.4 g/dl (32.0-36.5); MEAN CORPUSCULAR VOLUME 91.5 fl (80.0-96.0); MONO # 0.6 10^3/uL (0.0-0.8); MONO % 8.2 % (2.0-8.0); NEUTROPHILS # 3.3 10^3/uL (1.5-8.5); NEUTROPHILS % 47.6 % (36.0-66.0); PLATELET COUNT, AUTOMATED 223 10^3/uL (150-450); RED BLOOD COUNT 5.04 10^6/uL (4.30-6.10)
[2021-06-03 00:21] LABS: INR 0.94
[2021-06-03 00:27] LABS: BLOOD UREA NITROGEN 18 MG/DL (7-18); CALCIUM LEVEL 9.5 MG/DL (8.5-10.1); CARBON DIOXIDE LEVEL 26 MEQ/L (21-32); CHLORIDE LEVEL 108 MEQ/L (98-107); CREATININE FOR GFR 0.91 MG/DL (0.70-1.30); GLOMERULAR FILTRATION RATE > 60.0 (>56); GLUCOSE, FASTING 114 MG/DL (70-100); POTASSIUM SERUM 4.1 MEQ/L (3.5-5.1); SODIUM LEVEL 142 MEQ/L (136-145)
[2021-06-03 00:32] LABS: CK-MB VALUE MASS 2.3 NG/ML (<3.6); MB/CK RELATIVE INDEX 1.54 (< OR =4)
[2021-06-03] MEDS ORDERED: ISOVUE-370 76% 100ML VIAL As Ordered ONE (02:39)
[2021-06-03 04:40] LABS: ACETAMINOPHEN LEVEL < 2.0 UG/ML (10.0-30.0); SALICYLATE LEVEL 2.4 MG/DL (5.0-30.0)
[2021-06-03 05:10] LABS: AMPHETAMINES LEVEL URINE NEGATIVE (NEGATIVE); BARBITURATES URINE NEGATIVE (NEGATIVE); BENZODIAZEPINES URINE NEGATIVE (NEGATIVE); CANNABINOIDS URINE NEGATIVE (NEGATIVE); COCAINE METABOLITE URINE NEGATIVE (NEGATIVE); METHADONE URINE NEGATIVE (NEGATIVE); OPIATES URINE NEGATIVE (NEGATIVE); PHENCYCLIDINE URINE NEGATIVE (NEGATIVE)
[2021-06-03] MEDS ORDERED: LANTINJ4 SC (07:38)
[2021-06-03] MEDS ORDERED: MIRT-11 PO (07:38)
[2021-06-03] MEDS ORDERED: FLOM0.4C39 PO (07:38)
[2021-06-03] MEDS ORDERED: HOME MED LIST COMPLETE! XX SCH (07:40)
[2021-06-03 09:00] VITALS: BP 179/79
== END 2021-06-03 13:39 | disposition home or self-care (01) ==
LOC: M ED 23:25
DX: R07.9 Chest pain, unspecified (principal); E11.9 Type 2 diabetes mellitus without complications; E78.5 Hyperlipidemia, unspecified; I10 Essential (primary) hypertension; Z79.4 Long term (current) use of insulin; Z88.0 Allergy status to penicillin; Z88.8 Allergy status to other drugs, medicaments and biological substances; Z79.82 Long term (current) use of aspirin; Z79.899 Other long term (current) drug therapy
CPT/HCPCS: 36415; 71045; 71275; 80048; 80143; 80307; 82550; 82553; 84484; 85025; 85610; 93005; 93041; 94760; 99285; Q9967

== ENCOUNTER 2021-06-05 10:08 | Emergency (ER) | payer OTHER ==
[~2021-06-05] VITALS: Ht 177.8 cm; Wt 108.6 kg
[~2021-06-05 10:08] MED LIST changes: +FLOM0.4C39 PO; +LANTINJ4 SC; +MIRT-11 PO
[2021-06-05 10:50] LABS: INR 0.95; PROTHROMBIN TIME 13.1 SECONDS (12.7-14.5)
[2021-06-05 10:51] LABS: PARTIAL THROMBOPLASTIN TIME 29.2 SECONDS (25.9-37.0)
[2021-06-05 10:54] LABS: BASO % 0.5 % (0.0-1.0); EOS # 0.3 10^3/uL (0.0-0.5); EOS % 3.7 % (0.0-3.0); HEMATOCRIT 49.4 % (42.0-52.0); HEMOGLOBIN 16.2 g/dl (13.5-17.5); LYMPH # 1.8 10^3/uL (1.5-5.0); MEAN CORPUSCULAR HEMOGLOBIN 30.7 pg (27.0-33.0); MEAN CORPUSCULAR HGB CONC 32.8 g/dl (32.0-36.5); MEAN CORPUSCULAR VOLUME 93.6 fl (80.0-96.0); MONO # 0.7 10^3/uL (0.0-0.8); MONO % 8.9 % (2.0-8.0); NEUTROPHILS # 4.5 10^3/uL (1.5-8.5); NEUTROPHILS % 61.5 % (36.0-66.0); PLATELET COUNT, AUTOMATED 213 10^3/uL (150-450); RED BLOOD COUNT 5.28 10^6/uL (4.30-6.10); WHITE BLOOD COUNT 7.3 10^3/uL (4.0-10.0)
[2021-06-05 10:59] LABS: CK-MB VALUE MASS 2.2 NG/ML (<3.6); MB/CK RELATIVE INDEX 1.93 (< OR =4)
[2021-06-05 11:06] LABS: ALBUMIN 3.8 GM/DL (3.2-5.2); ALT/SGPT 25 U/L (12-78); BILIRUBIN,DIRECT 0.1 MG/DL (0.0-0.2); BILIRUBIN,TOTAL 0.3 MG/DL (0.2-1.0); BLOOD UREA NITROGEN 14 MG/DL (7-18); CALCIUM LEVEL 10.2 MG/DL (8.5-10.1); CARBON DIOXIDE LEVEL 26 MEQ/L (21-32); CHLORIDE LEVEL 109 MEQ/L (98-107); CREATININE FOR GFR 0.98 MG/DL (0.70-1.30); GLOMERULAR FILTRATION RATE > 60.0 (>56); GLUCOSE, FASTING 200 MG/DL (70-100); LIPASE 105 U/L (73-393); NT-PRO BNP 71 PG/ML (<125); POTASSIUM SERUM 4.1 MEQ/L (3.5-5.1); SODIUM LEVEL 143 MEQ/L (136-145); TOTAL PROTEIN 7.1 GM/DL (6.4-8.2)
[2021-06-05] MEDS ORDERED: MORPHINE 4 MG/ML 1ML VIAL/SYRINGE (J2270) IV ONE (11:25)
[2021-06-05] MEDS ORDERED: ALPRAZolam 0.5 MG TAB PO ONE (11:25)
[2021-06-05] MEDS ORDERED: ONDANSETRON 4MG/2ML VIAL IV ONE (11:25)
[2021-06-05 12:57] LABS: CK-MB VALUE MASS 1.8 NG/ML (<3.6); MB/CK RELATIVE INDEX 2.12 (< OR =4)
[2021-06-05] MEDS ORDERED: SUCRALFATE 1 GM TAB PO ONE (13:45)
[2021-06-05] MEDS ORDERED: PANTOPRAZOLE 40MG VIAL (C9113 PER 1) IV ONE (13:45)
[2021-06-05] MEDS ORDERED: GI COCKTAIL 50ML BTL(HYOSCYAMINE/MAALOX/LIDOCAINE VISCOUS)(1:3:1) PO ONE (13:45)
[2021-06-05 15:06] LABS: CK-MB VALUE MASS 1.5 NG/ML (<3.6); MB/CK RELATIVE INDEX 1.79 (< OR =4)
[2021-06-05 15:30] VITALS: BP 124/68
== END 2021-06-05 15:54 | disposition home or self-care (01) ==
LOC: M ED 10:08 → EDBD 10:08 → M ED 15:54
DX: R07.9 Chest pain, unspecified (principal); R11.0 Nausea; R00.0 Tachycardia, unspecified; E11.9 Type 2 diabetes mellitus without complications; I10 Essential (primary) hypertension; K21.9 Gastro-esophageal reflux disease without esophagitis; R56.9 Unspecified convulsions; Z88.0 Allergy status to penicillin; Z88.8 Allergy status to other drugs, medicaments and biological substances; Z79.899 Other long term (current) drug therapy; Z79.82 Long term (current) use of aspirin; Z79.84 Long term (current) use of oral hypoglycemic drugs
CPT/HCPCS: 71045; 80048; 80076; 82550; 82553; 83690; 83880; 84443; 84484; 85025; 85610; 85730; 87428; 93005; 93041; 94760; 96374; 96375; 99285; C9113; J2270; J2405

== ENCOUNTER 2021-07-03 16:50 | Emergency (ER) | payer OTHER ==
[~2021-07-03] VITALS: Ht 177.8 cm; Wt 106.8 kg
[2021-07-03 17:51] VITALS: BP 168/86
[2021-07-03] MEDS ORDERED: NITROGLYCERIN 0.4 MG SUBL TABLET SL STA (17:51)
[2021-07-03 18:10] LABS: HEMATOCRIT 45.3 % (42.0-52.0); MEAN CORPUSCULAR HEMOGLOBIN 30.9 pg (27.0-33.0); MEAN CORPUSCULAR HGB CONC 33.1 g/dl (32.0-36.5); MEAN CORPUSCULAR VOLUME 93.4 fl (80.0-96.0); PLATELET COUNT, AUTOMATED 208 10^3/uL (150-450); RED BLOOD COUNT 4.85 10^6/uL (4.30-6.10); WHITE BLOOD COUNT 5.6 10^3/uL (4.0-10.0)
[2021-07-03 18:36] LABS: ATYPICAL LYMPH 8 % (0-5); BASOPHILS 1 % (0-1); EOSINOPHILS 3 % (0-3); LYMPHOCYTES 36 % (16-44); MONOCYTES 5 % (0-5); NEUTROPHILS 47 % (28-66)
[2021-07-03 18:37] LABS: PLATELET ESTIMATE NORMAL (NORMAL)
[2021-07-03 18:42] LABS: CK-MB VALUE MASS 1.1 NG/ML (<3.6); MB/CK RELATIVE INDEX 1.86 (< OR =4)
[2021-07-03 18:49] LABS: BLOOD UREA NITROGEN 12 MG/DL (7-18); CALCIUM LEVEL 9.7 MG/DL (8.5-10.1); CARBON DIOXIDE LEVEL 25 MEQ/L (21-32); CHLORIDE LEVEL 107 MEQ/L (98-107); CREATININE FOR GFR 0.82 MG/DL (0.70-1.30); FREE T4 0.86 NG/DL (0.76-1.46); GLOMERULAR FILTRATION RATE > 60.0 (>56); GLUCOSE, FASTING 133 MG/DL (70-100); POTASSIUM SERUM 4.5 MEQ/L (3.5-5.1); SODIUM LEVEL 139 MEQ/L (136-145)
[2021-07-03 19:45] LABS: CK-MB VALUE MASS 1.2 NG/ML (<3.6); MB/CK RELATIVE INDEX 2.5 (< OR =4)
[2021-07-03 21:23] VITALS: BP 141/76
[2021-07-03 22:26] LABS: CK-MB VALUE MASS < 1.0 NG/ML (<3.6); CPK CREATINE PHOSPHOKINASE 55 U/L (39-308); MB/CK RELATIVE INDEX 1.82 (< OR =4)
== END 2021-07-03 22:55 | disposition home or self-care (01) ==
LOC: M ED 16:50 → EDBD 16:50 → M ED 22:55
DX: R07.89 Other chest pain (principal); E10.9 Type 1 diabetes mellitus without complications; I10 Essential (primary) hypertension; E78.5 Hyperlipidemia, unspecified; Z88.0 Allergy status to penicillin; Z88.8 Allergy status to other drugs, medicaments and biological substances; Z79.899 Other long term (current) drug therapy

== ENCOUNTER → 2021-11-08 | Outpatient (CLI) | payer OTHER ==
[2021-11-08 19:10] LABS: BASO # 0.1 10^3/uL (0.0-0.2); BASO % 0.7 % (0.0-1.0); EOS # 0.1 10^3/uL (0.0-0.5); EOS % 1.2 % (0.0-3.0); HEMOGLOBIN 15.8 g/dl (13.5-17.5); LYMPH # 2.5 10^3/uL (1.5-5.0); LYMPH % 33.6 % (24.0-44.0); MEAN CORPUSCULAR HEMOGLOBIN 31.2 pg (27.0-33.0); MEAN CORPUSCULAR HGB CONC 34.3 g/dl (32.0-36.5); MEAN CORPUSCULAR VOLUME 90.9 fl (80.0-96.0); MONO # 0.6 10^3/uL (0.0-0.8); MONO % 7.4 % (2.0-8.0); NEUTROPHILS # 4.3 10^3/uL (1.5-8.5); NEUTROPHILS % 56.2 % (36.0-66.0); PLATELET COUNT, AUTOMATED 275 10^3/uL (150-450); RED BLOOD COUNT 5.06 10^6/uL (4.30-6.10); WHITE BLOOD COUNT 7.6 10^3/uL (4.0-10.0)
[2021-11-08 19:40] LABS: BLOOD UREA NITROGEN 16 MG/DL (7-18); CALCIUM LEVEL 10.4 MG/DL (8.5-10.1); CARBON DIOXIDE LEVEL 24 MEQ/L (21-32); CHLORIDE LEVEL 107 MEQ/L (98-107); CREATININE FOR GFR 0.92 MG/DL (0.70-1.30); GLOMERULAR FILTRATION RATE > 60.0 (>56); GLUCOSE, FASTING 178 MG/DL (70-100); POTASSIUM SERUM 4.5 MEQ/L (3.5-5.1); SODIUM LEVEL 137 MEQ/L (136-145)
== END ==
LOC: M LAB 18:30
PROVIDERS: ATTEND Internal Medicine Cardiovascular Disease
DX: R07.89 Other chest pain (principal); I10 Essential (primary) hypertension

== ENCOUNTER 2021-11-15 12:34 | Emergency (ER) | payer OTHER ==
[~2021-11-15] VITALS: Ht 177.8 cm; Wt 109.9 kg
[2021-11-15] MEDS ORDERED: ISOVUE-370 76% 100ML VIAL As Ordered ONE (13:13)
[2021-11-15 13:45] LABS: BASO % 0.5 % (0.0-1.0); EOS # 0.1 10^3/uL (0.0-0.5); EOS % 1.4 % (0.0-3.0); HEMOGLOBIN 15.1 g/dl (13.5-17.5); LYMPH # 2.1 10^3/uL (1.5-5.0); LYMPH % 32.4 % (24.0-44.0); MEAN CORPUSCULAR HEMOGLOBIN 30.4 pg (27.0-33.0); MEAN CORPUSCULAR HGB CONC 32.8 g/dl (32.0-36.5); MEAN CORPUSCULAR VOLUME 92.6 fl (80.0-96.0); MONO # 0.5 10^3/uL (0.0-0.8); MONO % 8.3 % (2.0-8.0); NEUTROPHILS # 3.6 10^3/uL (1.5-8.5); NEUTROPHILS % 56.9 % (36.0-66.0); PLATELET COUNT, AUTOMATED 234 10^3/uL (150-450); RED BLOOD COUNT 4.97 10^6/uL (4.30-6.10); WHITE BLOOD COUNT 6.4 10^3/uL (4.0-10.0)
[2021-11-15 13:58] LABS: INR 0.94
[2021-11-15 13:59] LABS: PARTIAL THROMBOPLASTIN TIME 29.1 SECONDS (25.9-37.0)
[2021-11-15 14:21] LABS: ALBUMIN 3.6 GM/DL (3.2-5.2); BILIRUBIN,DIRECT 0.1 MG/DL (0.0-0.2); BILIRUBIN,TOTAL 0.3 MG/DL (0.2-1.0); CK-MB VALUE MASS 1.6 NG/ML (<3.6); FREE T4 0.98 NG/DL (0.76-1.46); MB/CK RELATIVE INDEX 1.36 (< OR =4); THYROID STIMULATING HORMONE 1.92 uIU/ML (0.358-3.740); TOTAL PROTEIN 7.1 GM/DL (6.4-8.2)
[2021-11-15 14:30] VITALS: BP 146/76
[2021-11-15 15:13] LABS: RSV AMPLIFICATION NEGATIVE (NEGATIVE)
[2021-11-15 15:17] LABS: CK-MB VALUE MASS 1.4 NG/ML (<3.6); MB/CK RELATIVE INDEX 1.35 (< OR =4)
== END 2021-11-15 17:03 | disposition left against medical advice (07) ==
LOC: M ED 12:34
DX: G45.9 Transient cerebral ischemic attack, unspecified (principal); R07.9 Chest pain, unspecified; H91.93 Unspecified hearing loss, bilateral; E11.9 Type 2 diabetes mellitus without complications; I10 Essential (primary) hypertension; F41.9 Anxiety disorder, unspecified; F32.A Depression, unspecified; F43.10 Post-traumatic stress disorder, unspecified; Z53.20 Procedure and treatment not carried out because of patient's decision for unspecified reasons; Z79.899 Other long term (current) drug therapy; Z79.84 Long term (current) use of oral hypoglycemic drugs; Z79.82 Long term (current) use of aspirin; Z87.820 Personal history of traumatic brain injury; Z88.0 Allergy status to penicillin; Z88.8 Allergy status to other drugs, medicaments and biological substances; Z95.5 Presence of coronary angioplasty implant and graft
CPT/HCPCS: 36415; 70450; 70496; 70498; 71045; 80047; 80076; 80164; 82550; 82553; 83690; 83880; 84439; 84443; 84484; 85025; 85610; 85730; 86850; 86900; 86901; 87631; 93005; 93041; 94760; 99285; Q9967

== ENCOUNTER → 2022-04-11 | Outpatient (CLI) | payer OTHER | LOC: M SOG 08:16 | PROVIDERS: ATTEND Orthopaedic Surgery | DX: M25.561 Pain in right knee (principal) ==

== ENCOUNTER → 2022-04-19 | Outpatient (CLI) | payer OTHER | LOC: M PLAIMG 06:51 | PROVIDERS: ATTEND Orthopaedic Surgery | DX: M25.561 Pain in right knee (principal); M23.303 Other meniscus derangements, unspecified medial meniscus, right knee ==

== ENCOUNTER 2023-01-15 07:24 | Emergency (ER) | payer OTHER ==
[~2023-01-15] VITALS: Ht 177.8 cm; Wt 96.8 kg
[~2023-01-15 07:24] MED LIST changes: +ASPI-655 PO; -ASPI1CHW3 PO; +GLIP5TAB17 PO; -GLIP5TAB8 PO; +LORA-1041 PO; -LORA-674 PO; -MIRT-62 PO; +MIRT-84 PO; +MIRT-88 PO; -REME15TA2 PO
[2023-01-15] MEDS ORDERED: LISI40TA4 PO (09:00)
[2023-01-15 14:03] VITALS: BP 155/92; TEMP 97.1; O2SAT 99
== END 2023-01-15 14:06 | disposition home or self-care (01) ==
LOC: M ED 07:24
DX: F32.A Depression, unspecified (principal); I25.10 Atherosclerotic heart disease of native coronary artery without angina pectoris; E11.9 Type 2 diabetes mellitus without complications; E78.5 Hyperlipidemia, unspecified; I10 Essential (primary) hypertension; F43.10 Post-traumatic stress disorder, unspecified; Z79.82 Long term (current) use of aspirin; Z79.84 Long term (current) use of oral hypoglycemic drugs; Z79.899 Other long term (current) drug therapy; Z88.0 Allergy status to penicillin; Z88.8 Allergy status to other drugs, medicaments and biological substances

== ENCOUNTER → 2023-02-24 | Outpatient (CLI) | payer OTHER | LOC: M SOG 15:56 | PROVIDERS: ATTEND Orthopaedic Surgery | DX: M17.11 Unilateral primary osteoarthritis, right knee (principal) ==

== ENCOUNTER → 2023-06-20 | Outpatient (CLI) | payer OTHER | LOC: M SOG 08:08 | PROVIDERS: ATTEND Orthopaedic Surgery | DX: M25.561 Pain in right knee (principal) ==

== ENCOUNTER 2023-08-19 22:49 | Emergency (ER) | payer OTHER ==
[~2023-08-19] VITALS: Ht 177.8 cm; Wt 95.5 kg
[2023-08-20] MEDS: NS 1,000 ML IV ONE (04:04)
[2023-08-20] MEDS: METOCLOPRAMIDE INJ 10MG/2ML VIAL IV ONE (04:04)
[2023-08-20] MEDS: KETOROLAC 30 MG/ML 1ML VIAL IV ONE (04:05)
[2023-08-20] MEDS: diphenhydrAMINE 50MG/ML VIAL IV ONE (04:05)
[2023-08-20 05:40] VITALS: BP 131/69; TEMP 98; O2SAT 98
== END 2023-08-20 05:45 | disposition home or self-care (01) ==
LOC: M ED 22:49
DX: G43.909 Migraine, unspecified, not intractable, without status migrainosus (principal); S06.0X0A Concussion without loss of consciousness, initial encounter; E11.9 Type 2 diabetes mellitus without complications; G40.89 Other seizures; F10.10 Alcohol abuse, uncomplicated; Y92.9 Unspecified place or not applicable; Y93.9 Activity, unspecified; Y99.9 Unspecified external cause status; Z88.0 Allergy status to penicillin; Z88.8 Allergy status to other drugs, medicaments and biological substances; Z79.1 Long term (current) use of non-steroidal anti-inflammatories (NSAID); Z79.84 Long term (current) use of oral hypoglycemic drugs; Z79.899 Other long term (current) drug therapy
CPT/HCPCS: 70450; 96361; 96374; 96375; 99284; J1200; J1885; J2765

== ENCOUNTER 2024-01-02 20:30 | Emergency (ER) | payer OTHER ==
[~2024-01-02] VITALS: Ht 177.8 cm; Wt 95.5 kg
[2024-01-02 21:05] LABS: HEMATOCRIT 47.5 % (42.0-52.0); HEMOGLOBIN 15.8 g/dl (13.5-17.5); MEAN CORPUSCULAR HEMOGLOBIN 31.3 pg (27.0-33.0); MEAN CORPUSCULAR HGB CONC 33.3 g/dl (32.0-36.5); MEAN CORPUSCULAR VOLUME 94.1 fl (80.0-96.0); PLATELET COUNT, AUTOMATED 214 10^3/uL (150-450); RED BLOOD COUNT 5.05 10^6/uL (4.30-6.10); WHITE BLOOD COUNT 6.5 10^3/uL (4.0-10.0)
[2024-01-02 21:30] LABS: ETHYL ALCOHOL (ETHANOL) < 0.003 % (0.000-0.010)
[2024-01-02 21:32] LABS: ALBUMIN 3.8 G/DL (3.2-5.2); ALKALINE PHOSPHATASE 65 U/L (46-116); ALT/SGPT 31 U/L (7.0-40); AST/SGOT 18 U/L (<34); BILIRUBIN,DIRECT 0.2 MG/DL (<0.4); BILIRUBIN,TOTAL 0.5 MG/DL (0.3-1.2); BLOOD UREA NITROGEN 12 MG/DL (9-23); CALCIUM LEVEL 10.8 MG/DL (8.5-10.1); CARBON DIOXIDE LEVEL 30 MMOL/L (20-31); CHLORIDE LEVEL 110 MMOL/L (98-107); GLOMERULAR FILTRATION RATE > 60.0 (>56); GLUCOSE, FASTING 117 MG/DL (60-100); POTASSIUM SERUM 4.4 MMOL/L (3.5-5.1); SALICYLATE LEVEL < 3.0 MG/DL (<30); SODIUM LEVEL 142 MMOL/L (136-145)
[2024-01-02] MEDS ORDERED: MED REC IN PROGRESS XX SCH (22:10)
[2024-01-02] MEDS ORDERED: MAGN400T2 PO (23:06)
[2024-01-02] MEDS ORDERED: EQL50TAB2 PO (23:06)
[2024-01-02] MEDS ORDERED: SYNJ1TAB3 PO (23:06)
[2024-01-02 23:14] LABS: AMPHETAMINES LEVEL URINE NEGATIVE (NEGATIVE); BARBITURATES URINE NEGATIVE (NEGATIVE); BENZODIAZEPINES URINE NEGATIVE (NEGATIVE); CANNABINOIDS URINE NEGATIVE (NEGATIVE); COCAINE METABOLITE URINE NEGATIVE (NEGATIVE); METHADONE URINE NEGATIVE (NEGATIVE); OPIATES URINE NEGATIVE (NEGATIVE); PHENCYCLIDINE URINE NEGATIVE (NEGATIVE)
[2024-01-02] MEDS ORDERED: SEMA1PEN2 SQ (23:17)
[2024-01-02] MEDS ORDERED: PROP20TA72 PO (23:17)
[2024-01-02] MEDS ORDERED: OXYB15TA14 PO (23:17)
[2024-01-02] MEDS ORDERED: VITA500T40 PO (23:19)
[2024-01-02] MEDS ORDERED: HOME MED LIST COMPLETE! XX SCH (23:20)
[2024-01-03 12:27] VITALS: BP 127/73; TEMP 97.1; O2SAT 100
== END 2024-01-03 12:34 | disposition home or self-care (01) ==
LOC: M ED 20:30
DX: F43.0 Acute stress reaction (principal); I25.2 Old myocardial infarction; Z88.8 Allergy status to other drugs, medicaments and biological substances; Z79.899 Other long term (current) drug therapy; Z91.09 Other allergy status, other than to drugs and biological substances; Z79.1 Long term (current) use of non-steroidal anti-inflammatories (NSAID); Z79.4 Long term (current) use of insulin

== ENCOUNTER 2024-01-14 11:35 | Emergency (ER) | payer OTHER ==
[~2024-01-14 11:35] MED LIST changes: +EQL50TAB2 PO; +MAGN400T2 PO; +OXYB15TA14 PO; +PROP20TA72 PO; +SEMA1PEN2 SQ; +SYNJ1TAB3 PO; +VITA500T40 PO
[2024-01-14 12:15] VITALS: TEMP 98.7
[2024-01-14] MEDS: ASPIRIN 81MG CHEW TABLET PO ONE (13:00)
[2024-01-14 13:01] VITALS: BP 117/72
[2024-01-14] MEDS: NITROGLYCERIN 0.4MG SUBL TABLET SL STA (13:01)
[2024-01-14 13:04] LABS: BASO % 0.7 % (0.0-1.0); EOS # 0.1 10^3/uL (0.0-0.5); EOS % 2.3 % (0.0-3.0); HEMATOCRIT 45.1 % (42.0-52.0); HEMOGLOBIN 15.1 g/dl (13.5-17.5); LYMPH # 1.9 10^3/uL (1.5-5.0); LYMPH % 33.2 % (24.0-44.0); MEAN CORPUSCULAR HEMOGLOBIN 30.8 pg (27.0-33.0); MEAN CORPUSCULAR HGB CONC 33.5 g/dl (32.0-36.5); MEAN CORPUSCULAR VOLUME 91.9 fl (80.0-96.0); MONO # 0.6 10^3/uL (0.0-0.8); MONO % 9.8 % (2.0-8.0); NEUTROPHILS # 3.1 10^3/uL (1.5-8.5); PLATELET COUNT, AUTOMATED 194 10^3/uL (150-450); RED BLOOD COUNT 4.91 10^6/uL (4.30-6.10); WHITE BLOOD COUNT 5.7 10^3/uL (4.0-10.0)
[2024-01-14 13:25] LABS: LIPASE 36 U/L (12-53)
[2024-01-14 13:26] LABS: VALPROIC ACID (DEPAKOTE) 70.6 UG/ML (50.0-100.0)
[2024-01-14 13:28] LABS: ALBUMIN 3.4 G/DL (3.2-5.2); ALKALINE PHOSPHATASE 69 U/L (40-129); ALT/SGPT 22 U/L (7.0-40); AST/SGOT 12 U/L (<34); BILIRUBIN,DIRECT 0.1 MG/DL (<0.4); BILIRUBIN,TOTAL 0.3 MG/DL (0.3-1.2); BLOOD UREA NITROGEN 18 MG/DL (9-23); CALCIUM LEVEL 10.3 MG/DL (8.5-10.1); CARBON DIOXIDE LEVEL 26 MMOL/L (20-31); CHLORIDE LEVEL 110 MMOL/L (98-107); CREATININE FOR GFR 0.96 MG/DL (0.70-1.30); GLOMERULAR FILTRATION RATE > 60.0 (>56); GLUCOSE, FASTING 247 MG/DL (60-100); SODIUM LEVEL 141 MMOL/L (136-145); TOTAL PROTEIN 6.2 G/DL (5.7-8.2)
[2024-01-14 13:33] LABS: FREE T4 1.32 NG/DL (0.89-1.76); THYROID STIMULATING HORMONE 1.206 uIU/ML (0.55-4.78)
[2024-01-14 13:35] LABS: CPK CREATINE PHOSPHOKINASE 92 U/L (46-171); MB/CK RELATIVE INDEX 1.08 (< OR =4)
[2024-01-14 14:05] LABS: MB/CK RELATIVE INDEX 1.16 (< OR =4)
[2024-01-14 16:15] LABS: CPK CREATINE PHOSPHOKINASE 71 U/L (46-171)
[2024-01-14 16:16] LABS: CK-MB VALUE MASS < 1.0 NG/ML (<3.6)
[2024-01-14 17:10] VITALS: BP 124/76; O2SAT 98
== END 2024-01-14 17:12 | disposition home or self-care (01) ==
LOC: M ED 11:35
DX: R07.9 Chest pain, unspecified (principal); E11.9 Type 2 diabetes mellitus without complications; I10 Essential (primary) hypertension; E78.5 Hyperlipidemia, unspecified; K21.9 Gastro-esophageal reflux disease without esophagitis; F43.10 Post-traumatic stress disorder, unspecified; Z79.82 Long term (current) use of aspirin; Z79.02 Long term (current) use of antithrombotics/antiplatelets; Z79.899 Other long term (current) drug therapy; Z79.811 Long term (current) use of aromatase inhibitors

== ENCOUNTER 2024-01-23 17:58 | Emergency (ER) | payer OTHER ==
[~2024-01-23] VITALS: Ht 177.8 cm; Wt 93.2 kg
[2024-01-23 18:47] LABS: BASO % 0.5 % (0.0-1.0); EOS # 0.1 10^3/uL (0.0-0.5); EOS % 1.1 % (0.0-3.0); HEMATOCRIT 45.2 % (42.0-52.0); HEMOGLOBIN 15.2 g/dl (13.5-17.5); LYMPH % 30.9 % (24.0-44.0); MEAN CORPUSCULAR HEMOGLOBIN 30.8 pg (27.0-33.0); MEAN CORPUSCULAR HGB CONC 33.6 g/dl (32.0-36.5); MEAN CORPUSCULAR VOLUME 91.5 fl (80.0-96.0); MONO # 0.5 10^3/uL (0.0-0.8); MONO % 7.5 % (2.0-8.0); NEUTROPHILS # 3.9 10^3/uL (1.5-8.5); NEUTROPHILS % 59.8 % (36.0-66.0); PLATELET COUNT, AUTOMATED 183 10^3/uL (150-450); RED BLOOD COUNT 4.94 10^6/uL (4.30-6.10); WHITE BLOOD COUNT 6.6 10^3/uL (4.0-10.0)
[2024-01-23 19:13] LABS: BLOOD UREA NITROGEN 13 MG/DL (9-23); CARBON DIOXIDE LEVEL 26 MMOL/L (20-31); CHLORIDE LEVEL 109 MMOL/L (98-107); CREATININE FOR GFR 0.69 MG/DL (0.70-1.30); GLOMERULAR FILTRATION RATE > 60.0 (>56); GLUCOSE, FASTING 131 MG/DL (60-100); SODIUM LEVEL 144 MMOL/L (136-145)
[2024-01-23 19:19] LABS: INR 1.03; PARTIAL THROMBOPLASTIN TIME 28.8 SECONDS (24.8-34.2); PROTHROMBIN TIME 13.8 SECONDS (12.5-14.5)
[2024-01-23 21:00] VITALS: BP 123/79; TEMP 97.8; O2SAT 96
[2024-01-23] MEDS: ACETAMINOPHEN 500 MG TAB PO ONE (22:38)
[2024-01-24] MEDS ORDERED: ISOVUE-370 76% 100ML VIAL As Ordered ONE (00:08)
== END 2024-01-24 02:32 | disposition home or self-care (01) ==
LOC: M ED 17:58
DX: H53.10 Unspecified subjective visual disturbances (principal); S06.0X0A Concussion without loss of consciousness, initial encounter; Y92.019 Unspecified place in single-family (private) house as the place of occurrence of the external cause; Y93.9 Activity, unspecified; Y99.9 Unspecified external cause status; W01.10XA Fall on same level from slipping, tripping and stumbling with subsequent striking against unspecified object, initial encounter; I25.2 Old myocardial infarction; G90.A Postural orthostatic tachycardia syndrome [POTS]; E11.9 Type 2 diabetes mellitus without complications; E78.5 Hyperlipidemia, unspecified; I10 Essential (primary) hypertension; K21.9 Gastro-esophageal reflux disease without esophagitis; F10.10 Alcohol abuse, uncomplicated; Z88.8 Allergy status to other drugs, medicaments and biological substances; Z91.09 Other allergy status, other than to drugs and biological substances; Z79.1 Long term (current) use of non-steroidal anti-inflammatories (NSAID); Z79.4 Long term (current) use of insulin; Z79.899 Other long term (current) drug therapy
CPT/HCPCS: 36415; 70450; 70480; 70498; 70544; 70551; 80047; 80048; 85025; 85610; 85730; 86850; 86900; 86901; 93005; 93041; 94760; 99285; Q9967

== ENCOUNTER 2024-01-31 00:41 | Emergency (ER) | payer OTHER ==
[~2024-01-31] VITALS: Ht 177.8 cm; Wt 93.2 kg
[2024-01-31 00:45] VITALS: TEMP 98
[2024-01-31 01:47] LABS: BASO % 0.4 % (0.0-1.0); EOS # 0.1 10^3/uL (0.0-0.5); EOS % 1.2 % (0.0-3.0); HEMATOCRIT 43.9 % (42.0-52.0); HEMOGLOBIN 14.6 g/dl (13.5-17.5); LYMPH # 2.1 10^3/uL (1.5-5.0); LYMPH % 41.1 % (24.0-44.0); MEAN CORPUSCULAR HEMOGLOBIN 30.7 pg (27.0-33.0); MEAN CORPUSCULAR HGB CONC 33.3 g/dl (32.0-36.5); MEAN CORPUSCULAR VOLUME 92.4 fl (80.0-96.0); MONO # 0.6 10^3/uL (0.0-0.8); MONO % 11.2 % (2.0-8.0); NEUTROPHILS # 2.4 10^3/uL (1.5-8.5); NEUTROPHILS % 45.9 % (36.0-66.0); PLATELET COUNT, AUTOMATED 194 10^3/uL (150-450); RED BLOOD COUNT 4.75 10^6/uL (4.30-6.10); WHITE BLOOD COUNT 5.1 10^3/uL (4.0-10.0)
[2024-01-31 02:08] LABS: VALPROIC ACID (DEPAKOTE) 45.8 UG/ML (50.0-100.0)
[2024-01-31 02:09] LABS: BLOOD UREA NITROGEN 14 MG/DL (9-23); CALCIUM LEVEL 10.4 MG/DL (8.5-10.1); CARBON DIOXIDE LEVEL 27 MMOL/L (20-31); CHLORIDE LEVEL 108 MMOL/L (98-107); CREATININE FOR GFR 0.74 MG/DL (0.70-1.30); GLOMERULAR FILTRATION RATE > 60.0 (>56); GLUCOSE, FASTING 144 MG/DL (60-100); POTASSIUM SERUM 4.2 MMOL/L (3.5-5.1); SODIUM LEVEL 141 MMOL/L (136-145)
[2024-01-31] MEDS: VALPROATE SOD INJ 1,000 MG in D5W 50 ML IV ONE (02:15)
[2024-01-31 03:29] VITALS: BP 126/79; O2SAT 95
== END 2024-01-31 03:34 | disposition home or self-care (01) ==
LOC: M ED 00:41
DX: G40.89 Other seizures (principal); E11.9 Type 2 diabetes mellitus without complications; I10 Essential (primary) hypertension; E78.5 Hyperlipidemia, unspecified; F41.9 Anxiety disorder, unspecified; F43.10 Post-traumatic stress disorder, unspecified; Z88.8 Allergy status to other drugs, medicaments and biological substances; Z91.09 Other allergy status, other than to drugs and biological substances; Z79.1 Long term (current) use of non-steroidal anti-inflammatories (NSAID); Z79.4 Long term (current) use of insulin; Z79.84 Long term (current) use of oral hypoglycemic drugs; Z79.899 Other long term (current) drug therapy